=== PATIENT | female | born 1990 | race Caucasian/White ===

== ENCOUNTER 2019-10-29 12:29 | Emergency (ER) | payer MEDICAID ==
[~2019-10-29] VITALS: Ht 160 cm; Wt 92.5 kg
[2019-10-29 12:50] VITALS: Ht 160 cm; Wt 92.5 kg
[2019-10-29 15:22] VITALS: BP 129/81
== END 2019-10-29 15:22 | disposition home or self-care (01) ==
LOC: ED 12:29
DX: J10.1 Influenza due to other identified influenza virus with other respiratory manifestations (principal)
CPT/HCPCS: 87804